=== PATIENT | female | born 1955 | race Caucasian/White ===

== ENCOUNTER 2025-01-05 14:52 | Emergency (ER) | payer MEDICARE, MEDICAID ==
[2025-01-05 15:37] LABS: BASOPHILS ABSOLUTE AUTO 0.03 K/uL (0.00-0.20); BASOPHILS PERCENT AUTO 0.5 % (0.0-2.0); EOSINOPHILS ABSOLUTE AUTO 0.06 K/uL (0.00-0.50); EOSINOPHILS PERCENT AUTO 0.9 % (0.0-5.0); IMMATURE GRAN ABSOLUTE AUTO 0.01 10^3/uL (0.00-0.04); IMMATURE GRAN PERCENT AUTO 0.2 % (0.0-0.4); LYMPHOCYTES ABSOLUTE AUTO 1.42 K/uL (0.50-3.50); LYMPHOCYTES PERCENT AUTO 22.1 % (10.0-50.0); MONOCYTES ABSOLUTE AUTO 0.43 K/uL (0.00-1.00); MONOCYTES PERCENT AUTO 6.7 % (2.0-14.0); NEUTROPHILS ABSOLUTE AUTO 4.47 K/uL (1.40-7.00); NEUTROPHILS PERCENT AUTO 69.6 % (45.0-80.0); PLATELET COUNT,PLT 270 K/uL (150-350); RED BLOOD CELL COUNT 4.46 M/uL (3.77-5.09); RED CELL DISTRIBUTION WIDTH 13.2 % (11.2-14.1); WHITE BLOOD CELL COUNT,WBC 6.4 K/uL (4.0-10.2)
[2025-01-05 15:52] LABS: APPEARANCE,URINE CLEAR; GLUCOSE,URINE NEGATIVE (NEGATIVE); OCCULT BLOOD,URINE NEGATIVE (NEGATIVE)
[2025-01-05 15:55] LABS: ALANINE AMINOTRANSFERASE,ALT 36.0 U/L (12-78); ASPARTATE AMNIOTRANSFERASE,AST 26.0 U/L (15-37); BILIRUBIN TOTAL 0.2 mg/dL (0.2-1.0); BLOOD UREA NITROGEN,BUN 20.0 mg/dL (7-18); CARBON DIOXIDE,CO2 26.7 mmol/L (21.0-32.0); CHLORIDE,CL 103.0 mmol/L (98-107); CREATININE 1.0 mg/dL (0.51-1.17); EST CRCL DRUG DOSING (CG) 44.34 mL/min; ESTIMATED GFR 60.0 mL/min (>=60); GLUCOSE RANDOM 119.0 mg/dL (70-99); POTASSIUM,K 3.8 mmol/L (3.5-5.1); PROTEIN TOTAL,TP 7.9 g/dL (6.4-8.2); SODIUM,NA 141.0 mmol/L (136-145)
[2025-01-05] MEDS: Sodium Chloride 0.9% 10 ML Syringe FLUSH PRN (15:57)
[2025-01-05 17:12] LABS: LACTIC ACID 0.8 mmol/L (0.4-2.0)
== END 2025-01-05 17:30 | disposition home or self-care (01) ==
LOC: LL.ED 14:52
DX: L03.115 Cellulitis of right lower limb (principal); L03.116 Cellulitis of left lower limb; Z88.5 Allergy status to narcotic agent; Z88.8 Allergy status to other drugs, medicaments and biological substances; Z79.899 Other long term (current) drug therapy
CPT/HCPCS: 36415; 80053; 81003; 83605; 85025; 87040; 87070; 87186; 87205; 96374; 99283; 99283-25; J0696

== ENCOUNTER 2025-04-15 15:20 | Emergency (ER) | payer MEDICARE, MEDICAID ==
[2025-04-15] MEDS: Take Home: oxyCODONE HCl 5 MG Tab, 5 Tab Pack PO ONE (18:21)
[2025-04-15] MEDS: Take Home: Doxycycline 100 MG Cap, 4 Cap Pack PO ONE (18:21)
== END 2025-04-15 18:47 | disposition home or self-care (01) ==
LOC: SUPCPDRO 15:20 → LL.ED 15:20
DX: L97.929 Non-pressure chronic ulcer of unspecified part of left lower leg with unspecified severity (principal); L97.919 Non-pressure chronic ulcer of unspecified part of right lower leg with unspecified severity; Z91.013 Allergy to seafood; Z91.09 Other allergy status, other than to drugs and biological substances; Z88.8 Allergy status to other drugs, medicaments and biological substances
CPT/HCPCS: 99282; A9270-GY